=== PATIENT | male | born 1945 | race Caucasian/White ===

== ENCOUNTER 2017-12-12 09:31 | Outpatient (RCR) | payer MEDICARE ==
[~2017-12-12 09:31] MED LIST: ASPI-586 PO; ATOR40TA70 PO; CIPR5DRO EACH EAR; CLOP75TA28 PO
== END 2018-02-12 | disposition home or self-care (01) ==
LOC: CR 09:31
PROVIDERS: ATTEND Internal Medicine Interventional Cardiology
DX: Z48.812 Encounter for surgical aftercare following surgery on the circulatory system (principal); Z95.5 Presence of coronary angioplasty implant and graft
CPT/HCPCS: 93798

== ENCOUNTER 2020-10-16 05:41 | Outpatient (CLI) | payer MEDICARE ==
[~2020-10-16] VITALS: Ht 177.8 cm; Wt 86.0 kg
[2020-10-16] MEDS ORDERED: HYDR200T78 PO (13:13)
[2020-10-16] MEDS ORDERED: UBID100C17 PO (13:13)
== END 2020-10-16 13:30 | disposition home or self-care (01) ==
LOC: PREOP 05:41
PROVIDERS: ATTEND Otolaryngology Otolaryngology/Facial Plastic Surgery
DX: Z01.818 Encounter for other preprocedural examination (principal)

== ENCOUNTER 2020-10-23 06:57 | Day surgery (SDC) | payer MEDICARE ==
[2020-10-23] VITALS (8 sets, daily range): BP systolic 132–149; BP diastolic 73–87
[~2020-10-23] VITALS: Ht 177.8 cm; Wt 88.6 kg
[~2020-10-23 06:57] MED LIST changes: +HYDR200T78 PO; +UBID100C17 PO
--- NOTE | 2020-10-23 07:07 | Progress Note-Pre Operative ---
Pre-Operative Progress Note H&P Reviewed The H&P was reviewed, patient examined and no changes noted. Date Seen by Provider: Oct 23, 2020 Time Seen by Provider: 07:00 Date H&P Reviewed: Oct 23, 2020 Time H&P Reviewed: 07:00 Pre-Operative Diagnosis: Chronic/Recurrent TORITO MARV MENDOZA MD Oct 23, 2020 07:07
[2020-10-23] MEDS ORDERED: LACTATED RINGERS 1,000 ML IV PRN (07:15)
[2020-10-23] MEDS ORDERED: fentaNYL INJ 100 MCG/2 ML AMP ONE (08:18)
[2020-10-23] MEDS ORDERED: MUPIROCIN 2% OINT 22 GM (BACTROBAN) TUBE ONE (08:49)
[2020-10-23] MEDS ORDERED: LIDOCAINE PF 2% 5 ML (XYLOCAINE) VIAL ONE (08:54)
[2020-10-23] MEDS ORDERED: SEVOFLURANE (ULTANE) 15 ML INHAL SOLN ONE (08:54)
[2020-10-23] MEDS ORDERED: proPOfol 200 MG/20 ML (DIPRIVAN) VIAL IV ONE (08:54)
--- NOTE | 2020-10-23 08:55 | Progress Note-Post Operative ---
Post-Operative Progess Note Surgeon (s)/Synthetic Filament Spinner (s) Surgeon MARV MENDOZA MD Synthetic Filament Spinner n/a Pre-Operative Diagnosis Chronic/Recurrent TORITO Post-Operative Diagnosis same Post-Op Procedure Note Date of Procedure: Oct 23, 2020 Name of Procedure Performed: Right Myringotomy with Tube, Right TM Patch, EUA of Left EAr Description & Findings Description and Findings: n/a Anesthesia Type lma Estimated Blood Loss minimal Packing none. Specimen(s) collected/removed none MARV MENDOZA MD Oct 23, 2020 08:55
[2020-10-23] MEDS ORDERED: APAP 325 MG/10.15 ML LIQ (TYLENOL) UDC PO PRN (09:00)
[2020-10-23] MEDS ORDERED: GARAMYCIN OPTH EACH EAR (10:03)
--- NOTE | 2020-10-23 12:10 | Anesthesia-General Post-Op ---
General Patient Condition Mental Status/LOC: Same as Preop Cardiovascular: Satisfactory Nausea/Vomiting: Absent Respiratory: Satisfactory Pain: Controlled Complications: Absent Post Op Complications Complications None Follow Up Care/Instructions Patient Instructions None needed. Anesthesia/Patient Condition Patient Condition Patient is doing well, no complaints, stable vital signs, no apparent adverse anesthesia problems. No complications reported per nursing. JACE LUCAS CRNA Oct 23, 2020 12:10
== END 2020-10-23 10:25 | disposition home or self-care (01) ==
LOC: SDC 06:57
PROVIDERS: ATTEND Otolaryngology Otolaryngology/Facial Plastic Surgery
DX: H66.93 Otitis media, unspecified, bilateral (principal); H69.81 Other specified disorders of Eustachian tube, right ear; I25.119 Atherosclerotic heart disease of native coronary artery with unspecified angina pectoris; Z79.899 Other long term (current) drug therapy; Z79.82 Long term (current) use of aspirin; Z86.73 Personal history of transient ischemic attack (TIA), and cerebral infarction without residual deficits
CPT/HCPCS: 87081